=== PATIENT | male | born 1955 | race Caucasian/White ===

== ENCOUNTER 2016-12-22 17:27 | Inpatient (IN) ==
--- NOTE | 2016-12-22 18:16 | CT Report ---
CT head/brain wo con Indication: Hemiparesis, side not delineated. CT BRAIN WITHOUT CONTRAST DLP: 1073 mGy*cm. One or more of the following dose reduction techniques was used: Automated exposure control, adjustment of the mA and/or kV according the patient size, or use of iterative reconstruction techniques. Comparison: None. Date of admission: 12/22/2016. Technique: Axial noncontrast CT images of the brain were obtained. Findings: No acute hemorrhage, mass or mass effect. Generalized atrophy and patchy periventricular white matter hypodensity is present throughout both convexities. Cortical pedroza-white junction and structures of the basal ganglia are well-defined. No bone lesions are shown. Internal auditory canals are symmetric. Visualized sinuses and mastoid air cells are clear. Impression: No acute intracranial pathology. Generalized atrophy and changes consistent with microvascular disease. PROCEDURE INTERPRETED AT [facility] DEPARTMENT OF RADIOLOGY Final Report Signed by: Chriss Castro M.D.
--- NOTE | 2016-12-22 18:17 | XRay Report ---
XR chest 1V portable Indication: Cardiomegaly. Chest one view: No comparison. The heart is normal in size. Bilateral perihilar haziness is present with diffuse peribronchial thickening. No focal pneumonia. Right hemidiaphragm is slightly elevated. Impression: Mild airways disease. No cardiomegaly. PROCEDURE INTERPRETED AT [facility] DEPARTMENT OF RADIOLOGY Final Report Signed by: Chriss Castro M.D.
[2016-12-22 18:32] LABS: Hematocrit 49.5 VOL% (42.0-52.0); Hemoglobin 17.5 GM/DL (14.0-18.0); Lymphocytes % 25.1 % (21.2-54.2); Mean Corpuscular HGB Conc 35.4 GM/DL (32-36); Mean Corpuscular Hemoglobin 33 PG (27-34); Mean Corpuscular Volume 92.9 FL (87-102); Mean Platelet Volume 10.3 FL (9.6-12.0); Neutrophils % 60.7 % (38.7-73.9); Platelet Count 206 T/CUMM (130-400); Red Blood Count 5.33 MC/CUMM (3.8-5.5); Red Cell Distribution Width 12.9 % (9.3-17.3); White Blood Count 7.5 T/CUMM (4-12)
[2016-12-22 18:33] LABS: Basophils % 0.5 % (0.0-0.8); Eosinophils # 0.1 10*3/uL (0.0-0.87); Eosinophils % 0.8 % (0.00-10.9); Immature Granulocytes % 0.3 %; Immature Granulocytes Absolute 0.02 #; Lymphocytes # 1.9 10*3/uL (1.4-4.0); Monocytes % 12.6 % (1.7-12.7); Neutrophils # 4.6 10*3/uL (1.4-7.4)
[2016-12-22 18:48] LABS: INR 1.1; PT Patient Result 11.5 SECS; Partial Thromboplastin Time 28.5 SECS (0-40)
[2016-12-22 18:52] LABS: Alanine Aminotransferase 41 U/L (16-61); Albumin 3.8 G/DL (3.4-5.0); Alkaline Phosphatase 112 U/L (45-117); Aspartate Amino Transferase 37 U/L (0-37); Bilirubin,Total < 0.39 MG/DL (0.2-1.0); Blood Urea Nitrogen 11 MG/DL (7-18); Calcium 9.1 MG/DL (8.5-10.1); Glucose 180 MG/DL (74-106); Osmolality,Calculated 278.7 MOS/KG (273-304); Potassium 3.8 MMOL/L (3.5-5.1); Sodium 138 MMOL/L (136-145); Total Protein 7.7 G/DL (6.4-8.3)
[2016-12-22 19:18] LABS: Apearance,Urine CLEAR (Clear); Bilirubin,Urine Negative (Negative); Blood, Urine Negative (Negative); Glucose,Urine (UA) >=500 mg/dL (Negative); Ketones,Urine Negative (Negative); Mucus,Urine Occasional /LPF (Occasional); Nitrite,Urine Negative (Negative); Protein,Urine 100 MG/DL; Squamous Epithelial Cell,Urine Occasional /HPF (0-10); Urine Color Yellow (Yellow); Urine Urobilinogen < 2.0 EU/DL (0.2-1.0); WBC,Urine 1 /HPF (0-6)
--- NOTE | 2016-12-22 19:19 | Emergency Department Note ---
Eyad Garcia Brittany, am scribing for, and in the presence of, Venkat Frost MD 17:56. Santosh Garcia Doug C, MD, personally performed the services described in this documentation, ascribed by Macey Castano in my presence, and it is both accurate and complete 919 . Arrival - Arrival Chief Complaint: Neuro Stated Complaint: possible stroke ED Nursing Triage Note: Pt c/o unsteady gait/difficulty ambulating since midnight with a HANKINS/dizziness. Mode of Arrival: Wheelchair Limitations: No Limitations Source: Patient, Significant other, RN Notes Reviewed - History of Present Illness HPI Narrative: Patient is a 61-year-old white male presents emergency room complaining of difficulty walking. Patient states he awakened last night around midnight and states he could barely make it to the restroom due to unsteady gait. He felt like he was in motion and he felt like he was very much off balance. He denies any headaches does not have any hearing changes. He denied any lateralizing weakness or paresthesias associated with this. He denies nausea, vomiting or any febrile symptoms. He does have a history of tobacco abuse and smoked 1-2 packs a day for 40 years. He has not had any visual changes and he denies any difficulty with his speech. Onset (ago): hour(s) (onset 12AM) Consistency: constant Allergies/Adverse Reactions: Allergies Allergy/AdvReac Type Severity Reaction Status Date / Time No Known Allergies Allergy Verified 12/22/16 17:38 Home Medications: Home Medications Medication Instructions Recorded Confirmed Type No Known Home Medications [No 12/22/16 12/22/16 History Known Home Medications] Review of System - Review of System 12 point system: reviewed and no additional remarkable complaints except as stated - Review of System Constitutional: Absent: chills, fever Eyes: Absent: vision change Head/Ears/Nose/Throat: Absent: nasal drainage, sore throat Respiratory: Absent: respiratory distress Cardiovascular: Absent: chest pain Gastrointestinal: Absent: abdominal pain, nausea, vomiting, diarrhea, constipation Genitourinary male: Absent: urgency, dysuria, frequency Musculoskeletal: Absent: arm pain, back pain, leg pain, neck pain Skin: Absent: rash Neurological: Present: as per HPI, weakness, abnormal gait, vertigo. Absent: headache, numbness, paresthesias, confusion Psychiatric: Absent: anxiety, depression Hematological/Lymphatic: Absent: easy bleeding, easy bruising Medical,Surgical,& Family Hx - Medical History Cardio: History of: Hypertension Respiratory: History of: Respiratory Problems ("PAP") - Surgical History Additional Surgical History: Patient has had prior sinus surgery and lung biopsy. - Family History Family History: Reports;: Family Hypertension - Social History Smoking Status: Current every day smoker Exam Vital Signs: Vital Signs Temperature 99.1 F 12/22/16 17:45 Pulse Rate 85 12/22/16 17:45 Respiratory Rate 18 12/22/16 17:45 Blood Pressure 175/105 12/22/16 17:45 O2 Sat by Pulse Oximetry 96 12/22/16 17:35 - General General appearance: alert, in no apparent distress, other (smells of cigarettes) - Head Head exam: Present: atraumatic, normocephalic, normal inspection - Eye Eye exam: Present: normal appearance, PERRL, EOMI - ENT ENT exam: Present: normal exam, normal oropharynx, mucous membranes moist - Neck Neck exam: Present: normal inspection, full ROM, trachea midline - Chest Chest inspection: Present: normal inspection, symmetric chest wall rise - Respiratory Respiratory exam: Present: normal lung sounds bilaterally. Absent: rales, rhonchi, wheezes - Cardiovascular Cardiovascular exam: Present: regular rate, normal rhythm, normal heart sounds. Absent: murmur, rubs, gallop - Abdominal Exam Abdominal exam: Present: soft, normal bowel sounds. Absent: distention, tenderness - Extremities Exam Extremities exam: Present: normal inspection - Back Exam Back exam: Present: normal inspection - Neurological Exam Neurological exam: Present: alert, oriented X3, CN II-XII intact. Absent: normal gait (Patient was noted to have an ataxic gait.), motor sensory deficit - Psychiatric Psychiatric exam: Present: normal affect - Skin Skin exam: Present: warm, dry Course Course Narrative: Patient's clinical presentation, laboratory and radiographic findings were discussed with Dr. Asad Lo. He will see the patient emergency room and evaluate for admission. Results - Labs CBC & BMP: 12/22/16 18:22 12/22/16 18:22 Lab Results: I have reviewed the patients labs Labs: Laboratory Tests 12/22/16 18:22 WBC 7.5 RBC 5.33 Hgb 17.5 Hct 49.5 MCV 92.9 MCH 33 MCHC 35.4 RDW 12.9 Plt Count 206 MPV 10.3 Neut % (Auto) 60.7 Lymph % (Auto) 25.1 [place] % (Auto) 12.6 Eos % (Auto) 0.8 Baso % (Auto) 0.5 Neut # (Auto) 4.6 Lymph # (Auto) 1.9 [place] # (Auto) 1.0 H Eos # (Auto) 0.1 Baso # (Auto) 0.0 Immature Gran % 0.3 Nucleated RBC % 0.0 Immature Gran # 0.02 Nucleated RBCs # 0.00 Laboratory Tests 12/22/16 12/22/16 12/22/16 18:22 18:22 18:22 INR 1.1 PT Patient/Control Mix 11.5 Circ Anticoag PTT 28.5 Sodium 138 Potassium 3.8 Chloride 105 Carbon Dioxide 25 Anion Gap 11.8 BUN 11 Creatinine 1.00 GFR Calculation 97 BUN/Creatinine Ratio 11.00 Glucose 180 H Calculated Osmolality 278.7 Calcium 9.1 Total Bilirubin < 0.39 AST 37 ALT 41 Alkaline Phosphatase 112 Troponin I < 0.015 Total Protein 7.7 Albumin 3.8 Globulin 3.9 H Albumin/Globulin Ratio 0.9 L - Diagnostic Findings Procedure: Chest x-ray: report reviewed by me (Mild airways disease. No cardiomegaly.), CT: report reviewed by me (Head CT: No acute intracranial pathology. Generalized atrophy and changes consistent with microvascular disease.) Disposition Clinical Impression: Unsteady gait Case discussed with: patient, patient's family Disposition: Still a Patient Condition: Stable Time of Disposition: 19:19
[2016-12-22 19:27] LABS: Barbiturates Screen,Urine Negative (Negative); Benzodiazepines Screen,Urine Negative (Negative); Cannabinoid Screen,Urine Negative (Negative); Opiate Screen,Urine Negative (Negative); Phencyclidine Screen,Urine Negative (Negative)
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
[2016-12-22] MEDS ORDERED: MECLIZINE 12.5 MG TABLET PO PRN (22:47)
[2016-12-22] MEDS ORDERED: DEXTROSE 50% 25 GM/50 ML VIAL IV PRN (22:47)
[2016-12-22] MEDS ORDERED: LABETALOL 20 MG/4 ML SYRINGE IV PRN (22:47)
[2016-12-22] MEDS ORDERED: SODIUM CHLORIDE 0.9% 1,000 ML IV SCH (22:47)
[2016-12-22] MEDS ORDERED: GLUCAGON 1 MG VIAL IM PRN (22:47)
[2016-12-22 23:30] LABS: Risk Ratio 11.26; VLDL CHOLESTEROL 210.8 MG/DL
[2016-12-22] MEDS ORDERED: PNEUMOCOCCAL VACCINE (23 VALENT) 0.5 ML VIAL IM ONE (23:59)
[2016-12-23] MEDS: INSULIN LISPRO 100 UNIT/ML SUBCUT SCH ×5 (00:39→20:54)
[2016-12-23] MEDS: ASPIRIN EC 81 MG TABLET PO SCH (08:32)
--- NOTE | 2016-12-23 09:52 | EKG Report ---
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
--- NOTE | 2016-12-23 10:53 | Magnetic Resonance Report ---
MR head/brain wo con Indication: "Acute dizziness in smoker, rule out CVA" MRI BRAIN WITHOUT CONTRAST Technique: Multiplanar noncontrast MR images of the brain were obtained. Comparison: None. Findings: No restricted diffusion. No evidence of hemorrhage or old blood products on gradient echo. Mild generalized atrophy noted diffusely. Virtually no abnormal T2 or FLAIR hyperintensities are seen within the deep white matter. There are some minimally dilated perivascular spaces in the basal ganglia. No encephalomalacia. No mass or mass effect. Orbits are symmetric. Internal auditory canals are symmetric. Visualized sinuses are clear. Impression: No acute intracranial pathology. Mild generalized atrophy. PROCEDURE INTERPRETED AT [facility] DEPARTMENT OF RADIOLOGY Final Report Signed by: Chriss Castro M.D.
--- NOTE | 2016-12-23 16:29 | Hospitalist Progress Note ---
Assessment and Plan - Time spent with patient Time spent with patient: Greater than 30 minutes (1) Unsteady gait Status: Acute Assessment and plan: MRI of the brain is negative. Will order echo and carotid ultrasound. We will consult neurology. Current Visit: Yes (2) Diabetes mellitus Status: Acute Assessment and plan: We will put the patient on a diabetic diet. Current Visit: Yes (3) Hypertension Status: Acute Assessment and plan: Start as needed hydralazine. Current Visit: Yes (4) Pulmonary alveolar proteinosis Status: Chronic Current Visit: Yes (5) Hypertriglyceridemia Status: Acute Assessment and plan: We will add TriCor. Current Visit: Yes (6) Hypercholesteremia Status: Acute Assessment and plan: We will add Lipitor. Current Visit: Yes (7) Tobacco abuse disorder Status: Acute Assessment and plan: Counseled on tobacco cessation. Current Visit: Yes Hospitalist: Subjective Interval history: No complaints overnight events. Exam - Constitutional Vitals: Period Temp Pulse Resp BP Sys/Arteaga Pulse Ox Last 24 Hr 96.4 F-99.1 F 61-88 16-20 152-189/96-116 95-99 General appearance: no acute distress - Head Head exam: Present: normocephalic, atraumatic - Eye Eye exam: Present: EOMI Pupils: Present: BANDAR - ENT ENT exam: Present: normal exam - Neck Neck exam: Present: normal inspection - Respiratory Respiratory exam: Present: clear to auscultation bilaterally. Absent: rhonchi, wheezes - Cardiovascular Cardiovascular exam: Present: regular rate and rhythm. Absent: gallop, rubs, systolic murmur - GI/Abdominal GI/Abdominal exam: Present: normal bowel sounds, soft. Absent: distended, firm , guarding, tenderness, rebound - Extremities Exam Extremities exam: Present: normal inspection. Absent: calf tenderness, edema Results - Labs CBC & BMP: 12/22/16 18:22 12/22/16 18:22 Lab Results: I have reviewed the past 24 hour labs Quality Measures - VTE Contraindication to Pharmacological VTE Prophylaxis: High Risk of Bleeding - Stroke Onset of Symptoms Date: 12/22/16 Onset of Symptoms Time: 00:00
[2016-12-23] MEDS: hydrALAZINE 20 MG/1 ML VIAL IV PRN (17:32)
--- NOTE | 2016-12-23 19:26 | Ultrasound Report ---
US carotid duplex BI Indication: Dizziness. CAROTID ULTRASOUND Comparison: None. Findings: Grayscale, color Doppler and pulsed Doppler interrogation of the carotid and vertebral arteries performed. Severity of stenosis based on flow velocity measurements using NASCET criteria. Distal right ICA diameter: 5.5 mm Distal left ICA diameter: 5.2 mm Peak systolic flow velocities in centimeters per second are as follows: Right: CCA: 86 cm/s Proximal ICA: 63 Distal ICA: 62 ICA/CCA ratio: 0.7 Left: CCA: 91 cm/s Proximal ICA: 70 Distal ICA: 75 ICA/CCA ratio: 0.8 External carotid arteries: Both are patent with antegrade flow. Vertebral arteries: Both are patent with antegrade flow. Grayscale and color Doppler images: Densely calcified plaque deposition shown bilaterally, but subjectively does not appear significant in size. Normal color Doppler flow present. Pulse Doppler waveform interrogation: No significant spectral broadening. Impression: No hemodynamically significant stenosis of either ICA origin. PROCEDURE INTERPRETED AT [facility] DEPARTMENT OF RADIOLOGY Final Report Signed by: Chriss Castro M.D.
[2016-12-23] MEDS: ATORVASTATIN 80 MG TABLET PO SCH (20:54)
[2016-12-24] MEDS: hydrALAZINE 20 MG/1 ML VIAL IV PRN ×2 (00:16→08:27)
[2016-12-24 04:48] LABS: Basophils % 0.6 % (0.0-0.8); Eosinophils # 0.1 10*3/uL (0.0-0.87); Eosinophils % 0.9 % (0.00-10.9); Hematocrit 49.1 VOL% (42.0-52.0); Hemoglobin 16.9 GM/DL (14.0-18.0); Immature Granulocytes % 0.3 %; Immature Granulocytes Absolute 0.02 #; Lymphocytes # 2.3 10*3/uL (1.4-4.0); Mean Corpuscular HGB Conc 34.4 GM/DL (32-36); Mean Corpuscular Hemoglobin 33 PG (27-34); Mean Corpuscular Volume 94.6 FL (87-102); Mean Platelet Volume 10.7 FL (9.6-12.0); Monocytes # 0.8 10*3/uL (0.11-0.8); Monocytes % 12.3 % (1.7-12.7); Neutrophils # 3.5 10*3/uL (1.4-7.4); Neutrophils % 51.9 % (38.7-73.9); Platelet Count 176 T/CUMM (130-400); Red Blood Count 5.19 MC/CUMM (3.8-5.5); Red Cell Distribution Width 12.7 % (9.3-17.3); White Blood Count 6.7 T/CUMM (4-12)
[2016-12-24 05:12] LABS: Calcium 8.8 MG/DL (8.5-10.1); Osmolality,Calculated 273.7 MOS/KG (273-304); Potassium 3.6 MMOL/L (3.5-5.1)
[2016-12-24] MEDS: INSULIN LISPRO 100 UNIT/ML SUBCUT SCH ×4 (08:01→21:14)
[2016-12-24] MEDS: FENOFIBRATE 145 MG TABLET PO SCH (08:26)
[2016-12-24] MEDS: ASPIRIN EC 81 MG TABLET PO SCH (08:26)
--- NOTE | 2016-12-24 09:11 | Neurology Consult Note ---
History of Present Illness History of present illness: Mr. Casey is a 61 year old right-handed white gentleman with past medical history of pulmonary alveolar proteinosis, smoking presented with a chief complaint of balance difficulty and unable to walk. It started all of a sudden on Saturday evening. Exacerbated by standing and walking. Relieved by resting in bed. Patient reported that he was fine up until Saturday evening and all of a sudden he developed this balance difficulty. He reported that he is leading towards the right somewhat. He denies dizziness, vertigo, room is spinning, speech difficulties, swallowing difficulties, tingling and numbness or weakness anywhere else. MRI of the brain is unremarkable for any acute or chronic pathology. Carotid ultrasound is unremarkable. Lipid panel is negative. Home Medications Medication Instructions Recorded Confirmed Type No Known Home Medications [No 12/22/16 12/22/16 History Known Home Medications] Allergies Allergy/AdvReac Type Severity Reaction Status Date / Time No Known Allergies Allergy Verified 12/22/16 17:38 12 point system: reviewed and no additional remarkable complaints except as stated Medical,Surgical,& Family Hx - Medical History Cardio: History of: Hypertension Neurology: No history of: Cerebral Hemorrhage, Cerebrovascular Accident, Neurological Problems Respiratory: History of: Respiratory Problems ("PAP") - Surgical History Neurologic Surgeries: Patient denies: Cerebral Hemorrhage - Family History Family History: Reports;: Family Hypertension - Social History Smoking Status: Current every day smoker Frequency of Alcohol Use: Occasionally Type of Drug Use: None Exam - Constitutional Vitals: Period Temp Pulse Resp BP Sys/Arteaga Pulse Ox Last 24 Hr 97.9 F-98.8 F 80-91 18-20 152-193/92-115 94-99 Exam: GENERAL: Patient is in no acute distress. NECK: Neck is supple. There is no JVD. No carotid bruits present. No thyroid masses. CVS: First and second heart sounds are normal. There is no S3 present. Regular rate and rhythm. RESPIRATORY: Lungs are clear to auscultation without any rales or rhonchi. ABDOMEN: Soft and non-tender. Bowel sounds are present. There is no hepatosplenomegaly. EXT: There is no palpable edema. Peripheral pulses are present. Skin: No rashes Central Nervous system: General: Alert, awake and Oriented x 3 Speech: Fluent Comprehension: Intact and normal Facial expressions: Normal Cranial Nerves: CN1/Olfactory: Normal CN II/ Optic: Normal, Visual Reyez unreliable CN III, and : BANDAR & EOMI CN V: Normal & intact CN VII: face is symmetric CNVIII: Normal CN XI/X/XI/XII: Intact and Normal Motor: Bulk and Tone is normal. Strength in the right 5/5 Strength in the left 5/5 Sensory: Grossly intact for all the modalities of PP, LT and temp sense Reflexes: 1+ and symmetrical Cerebellar function: Normal finger to nose and heel to marina testing. Toes: Equivocal Gait: Ataxic gait however was able to balance himself with some distraction. Results - Labs CBC & BMP: 12/24/16 04:10 12/24/16 04:10 Assessment and Plan (1) Unsteady gait Status: Acute Assessment and plan: The etiology of balance difficulty and unsteady gait is not clear. No evidence of stroke, TIAs, epilepsy, seizure or any primary ANALYTICAL STRATEGIST disorder seen. Upon destruction patient was unable to balance clearly and walk. I certainly cannot rule out the possibility of functional element. Recommend aspirin a day. Recommend PT and OT Recommend watchful observation for now Thank you for the count Current Visit: Yes
[2016-12-24] MEDS: amLODIPine 10 MG TABLET PO SCH (13:53)
--- NOTE | 2016-12-24 15:37 | ECHO Report ---
Aman Casey Exam Date: 12/24/2016 09:03 Referring Physician: Technologist: Radhika Martinez RDCS Age: 61 Ht (in): 70 Wt (lb): 189 Gender: M Exam Location: [facility] ([facility]) Echo Indications: Unsteadiness on feet, Unspecified abnormalities of gait and mobility, Essential (primary) hypertension, Nicotine dependence, cigarettes, uncomplicated, Diabetes BP: 158 / 92 HR: 97 Rhythm: Sinus Technical Quality: IMPRESSIONS Left ventricular ejection fraction is estimated at 65%. Grade I/IV diastolic dysfunction (abnormal relaxation filling pattern), normal to mildly elevated filling pressures. The right ventricle is normal in size and function. The right atrium is normal in size. The left atrium is normal in size. Morphologically normal mitral valve. No mitral valve regurgitation. Aortic valve sclerosis. No aortic valve regurgitation. Mild tricuspid valve regurgitation. GII30-14 mmHg. No pulmonary valve regurgitation. Normal pericardium without effusion. Normal ascending aorta dimension. MEASUREMENTS (Male / Female) Normal Values 2D ECHO LV Diastolic Diameter PLAX 4.2 cm 4.2 - 5.9 / 3.9 - 5.3 cm LV Systolic Diameter PLAX 2.1 cm LV Fractional Shortening PLAX 49.8 % IVS Diastolic Thickness 1.0 cm 0.6 - 1.0 / 0.6 - 0.9 cm LVPW Diastolic Thickness 1.0 cm 0.6 - 1.0 / 0.6 - 0.9 cm RV Internal Dim ED PLAX 2.9 cm Aortic Root Diameter 3.4 cm LA Systolic Diameter LX 3.4 cm 3.0 - 4.0 / 2.7 - 3.8 cm DOPPLER TR Peak Velocity 255.0 cm/s TR Peak Gradient 26.0 mmHg FINDINGS Left Ventricle Normal left ventricular cavity size. Normal left ventricular wall thickness. Left ventricular ejection fraction is estimated at 65%. Grade I/IV diastolic dysfunction (abnormal relaxation filling pattern), normal to mildly elevated filling pressures. Right Ventricle The right ventricle is normal in size and function. Right Atrium The right atrium is normal in size. Left Atrium The left atrium is normal in size. Mitral Valve Morphologically normal mitral valve. No mitral valve regurgitation. Aortic Valve Aortic valve sclerosis. No aortic valve regurgitation. Tricuspid Valve Morphologically normal tricuspid valve. Mild tricuspid valve regurgitation. AKN99-91 mmHg. Pulmonic Valve Pulmonic valve not well visualized. . No pulmonary valve regurgitation. Pericardium Normal pericardium without effusion. Aorta Normal ascending aorta dimension. Modesto Moreno (Electronically Signed) Final Date: 24 December 2016 15:36
--- NOTE | 2016-12-24 16:04 | Hospitalist Progress Note ---
Assessment and Plan - Time spent with patient Time spent with patient: Greater than 30 minutes (1) Unsteady gait Status: Acute Assessment and plan: MRI of the brain is negative. Appreciate Neurologys assistance. Current Visit: Yes (2) Diabetes mellitus Status: Acute Assessment and plan: We will put the patient on a diabetic diet. Current Visit: Yes (3) Hypertension Status: Acute Assessment and plan: Start as needed hydralazine. Current Visit: Yes (4) Pulmonary alveolar proteinosis Status: Chronic Current Visit: Yes (5) Hypertriglyceridemia Status: Acute Assessment and plan: We will add TriCor. Current Visit: Yes (6) Hypercholesteremia Status: Acute Assessment and plan: We will add Lipitor. Current Visit: Yes (7) Tobacco abuse disorder Status: Acute Assessment and plan: Counseled on tobacco cessation. Current Visit: Yes Hospitalist: Subjective Interval history: No complaints, no overnight events. Exam - Constitutional General appearance: no acute distress - Head Head exam: Present: normocephalic, atraumatic - Eye Eye exam: Present: EOMI Pupils: Present: BANDAR - ENT ENT exam: Present: normal exam - Neck Neck exam: Present: normal inspection - Respiratory Respiratory exam: Present: clear to auscultation bilaterally. Absent: rhonchi, wheezes - Cardiovascular Cardiovascular exam: Present: regular rate and rhythm. Absent: gallop, rubs, systolic murmur - GI/Abdominal GI/Abdominal exam: Present: normal bowel sounds, soft. Absent: distended, firm , guarding, tenderness, rebound - Extremities Exam Extremities exam: Present: normal inspection. Absent: calf tenderness, edema Results - Labs CBC & BMP: 12/24/16 04:10 12/24/16 04:10 Lab Results: I have reviewed the past 24 hour labs Quality Measures - VTE Contraindication to Pharmacological VTE Prophylaxis: High Risk of Bleeding - Stroke Onset of Symptoms Date: 12/22/16 Onset of Symptoms Time: 00:00
[2016-12-24] MEDS: ATORVASTATIN 80 MG TABLET PO SCH (21:13)
[2016-12-25 04:47] LABS: Basophils % 0.5 % (0.0-0.8); Eosinophils # 0.1 10*3/uL (0.0-0.87); Eosinophils % 0.9 % (0.00-10.9); Hematocrit 51.6 VOL% (42.0-52.0); Hemoglobin 17.5 GM/DL (14.0-18.0); Immature Granulocytes % 0.5 %; Immature Granulocytes Absolute 0.03 #; Lymphocytes % 30.8 % (21.2-54.2); Mean Corpuscular HGB Conc 33.9 GM/DL (32-36); Mean Corpuscular Hemoglobin 33 PG (27-34); Mean Corpuscular Volume 95.9 FL (87-102); Mean Platelet Volume 10.5 FL (9.6-12.0); Monocytes # 0.7 10*3/uL (0.11-0.8); Monocytes % 10.8 % (1.7-12.7); Neutrophils # 3.7 10*3/uL (1.4-7.4); Neutrophils % 56.5 % (38.7-73.9); Platelet Count 197 T/CUMM (130-400); Red Blood Count 5.38 MC/CUMM (3.8-5.5); Red Cell Distribution Width 12.9 % (9.3-17.3); White Blood Count 6.6 T/CUMM (4-12)
[2016-12-25 05:16] LABS: Calcium 9.4 MG/DL (8.5-10.1); Osmolality,Calculated 278.4 MOS/KG (273-304); Potassium 4.3 MMOL/L (3.5-5.1)
[2016-12-25] MEDS: FENOFIBRATE 145 MG TABLET PO SCH (08:42)
[2016-12-25] MEDS: amLODIPine 10 MG TABLET PO SCH (08:42)
[2016-12-25] MEDS: ASPIRIN EC 81 MG TABLET PO SCH (08:43)
[2016-12-25] MEDS: INSULIN LISPRO 100 UNIT/ML SUBCUT SCH ×4 (09:05→20:54)
[2016-12-25] MEDS ORDERED: ACETAMINOPHEN 325 MG TABLET PO PRN (10:04)
[2016-12-25] MEDS: LISINOPRIL 20 MG TABLET PO SCH (10:31)
--- NOTE | 2016-12-25 15:00 | Neurology Progress Note ---
Neurology - PN : Subjective Interval history: Mr. Casey seems to be doing a little better. However subjectively he states that he is about the same. MRI of the brain failed to reveal any acute pathology. Exam (Progress Note) - Constitutional Vitals: Period Temp Pulse Resp BP Sys/Arteaga Pulse Ox Last 24 Hr 96.8 F-98.5 F 74-89 16-20 148-186/90-112 95-97 Exam: GENERAL: Patient is in no acute distress. NECK: Neck is supple. There is no JVD. No carotid bruits present. No thyroid masses. CVS: First and second heart sounds are normal. There is no S3 present. Regular rate and rhythm. RESPIRATORY: Lungs are clear to auscultation without any rales or rhonchi. ABDOMEN: Soft and non-tender. Bowel sounds are present. There is no hepatosplenomegaly. EXT: There is no palpable edema. Peripheral pulses are present. Skin: No rashes Central Nervous system: General: Alert, awake and Oriented x 3 Speech: Fluent Comprehension: Intact and normal Facial expressions: Normal Cranial Nerves: CN1/Olfactory: Normal CN II/ Optic: Normal, Visual Reyez unreliable CN III, and : BANDAR & EOMI CN V: Normal & intact CN VII: face is symmetric CNVIII: Normal CN XI/X/XI/XII: Intact and Normal Motor: Bulk and Tone is normal. Strength in the right 5/5 Strength in the left 5/5 Sensory: Grossly intact for all the modalities of PP, LT and temp sense Reflexes: 1+ and symmetrical Cerebellar function: Normal finger to nose and heel to marina testing. Toes: Equivocal Gait: Ataxic gait however was able to balance himself with some distraction. Results - Labs CBC & BMP: 12/25/16 04:05 12/25/16 04:05 Assessment and Plan (1) Unsteady gait Status: Acute Assessment and plan: Continue aspirin a day. Recommend outpatient PT and OT No further recommendations/intervention from neuro standpoint Sign off please call. Current Visit: Yes Quality Measures - VTE Contraindication to Pharmacological VTE Prophylaxis: High Risk of Bleeding - Stroke Onset of Symptoms Date: 12/22/16 Onset of Symptoms Time: 00:00
--- NOTE | 2016-12-25 16:32 | Hospitalist Progress Note ---
Assessment and Plan - Time spent with patient Time spent with patient: Greater than 30 minutes (1) Unsteady gait Status: Acute Assessment and plan: MRI of the brain is negative. Appreciate Neurologys assistance. Current Visit: Yes (2) Diabetes mellitus Status: Acute Assessment and plan: We will put the patient on a diabetic diet. Current Visit: Yes (3) Hypertension Status: Acute Assessment and plan: Start as needed hydralazine. Current Visit: Yes (4) Pulmonary alveolar proteinosis Status: Chronic Current Visit: Yes (5) Hypertriglyceridemia Status: Acute Assessment and plan: We will add TriCor. Current Visit: Yes (6) Hypercholesteremia Status: Acute Assessment and plan: We will add Lipitor. Current Visit: Yes (7) Tobacco abuse disorder Status: Acute Assessment and plan: Counseled on tobacco cessation. Current Visit: Yes Hospitalist: Subjective Interval history: No complaints overnight events. Exam - Constitutional Vitals: Period Temp Pulse Resp BP Sys/Arteaga Pulse Ox Last 24 Hr 96.8 F-98.5 F 74-89 16-20 140-165/90-103 94-96 General appearance: no acute distress - Head Head exam: Present: normocephalic, atraumatic - Eye Eye exam: Present: EOMI Pupils: Present: BANDAR - ENT ENT exam: Present: normal exam - Neck Neck exam: Present: normal inspection - Respiratory Respiratory exam: Present: clear to auscultation bilaterally. Absent: rhonchi, wheezes - Cardiovascular Cardiovascular exam: Present: regular rate and rhythm. Absent: gallop, rubs, systolic murmur - GI/Abdominal GI/Abdominal exam: Present: normal bowel sounds, soft. Absent: distended, firm , guarding, tenderness, rebound - Extremities Exam Extremities exam: Present: normal inspection. Absent: calf tenderness, edema Results - Labs CBC & BMP: 12/25/16 04:05 12/25/16 04:05 Lab Results: I have reviewed the past 24 hour labs Quality Measures - VTE Contraindication to Pharmacological VTE Prophylaxis: High Risk of Bleeding - Stroke Onset of Symptoms Date: 12/22/16 Onset of Symptoms Time: 00:00
[2016-12-25] MEDS: ATORVASTATIN 80 MG TABLET PO SCH (20:53)
[2016-12-26] MEDS: INSULIN LISPRO 100 UNIT/ML SUBCUT SCH ×2 (08:33→11:20)
[2016-12-26] MEDS: ASPIRIN EC 81 MG TABLET PO SCH (08:45)
[2016-12-26] MEDS: amLODIPine 10 MG TABLET PO SCH (08:45)
[2016-12-26] MEDS: LISINOPRIL 20 MG TABLET PO SCH (08:45)
[2016-12-26] MEDS: FENOFIBRATE 145 MG TABLET PO SCH (08:45)
[2016-12-26 11:10] VITALS: BP 127/83
--- NOTE | 2016-12-26 14:29 | Discharge Summary ---
Hospital Course - Hospital Course Hospital Course: Mr. Casey was admitted for evaluation of ataxia. He had a MRI of his brain performed that was unremarkable. Echocardiogram revealed grade 1 out of 4 diastolic dysfunction with normal systolic function. Carotid Dopplers are negative. Patient was seen by neurology who recommended initiating an aspirin. He was noted to have elevated triglycerides, LDL and a hemoglobin A1c of 6.5. This indicates the patient has diabetes. I instructed the patient on proper diet initiated a statin and a fenofibrate. Patient was also noted to be hypotensive and antihypertensives were initiated. He will continue this regimen at home. He will also follow-up with outpatient PT. - Time spent with patient Time with patient DS: Greater than 30 minutes Diagnosis - Discharge Diagnosis (1) Unsteady gait Status: Acute (2) Diabetes mellitus Status: Acute (3) Hypertension Status: Acute (4) Pulmonary alveolar proteinosis Status: Chronic (5) Hypertriglyceridemia Status: Acute (6) Hypercholesteremia Status: Acute (7) Tobacco abuse disorder Status: Acute Discharge Plan - Discharge Data Disposition: Disch To Home/Self Care Condition at Discharge: Stable Discharge Diet: diabetic diet, heart healthy, high fiber diet, low fat, low cholesterol Activity: resume usual activities as tolerated - Discharge Medications New Aspirin EC Tab 81 mg PO DAILY #30 tablet Atorvastatin [Lipitor] 80 mg PO BEDTIME #30 tablet Fenofibrate [Tricor] 145 mg PO DAILY #30 tablet Lisinopril [Prinivil] 20 mg PO DAILY #30 tablet amLODIPine [Norvasc] 10 mg PO DAILY #30 tablet - Follow Up or Referral - Forms/Instructions Instructions: Pneumococcal Polysaccharide Vaccine (DC), Chronic Hypertension ( DC), Weakness (GEN), Fall Prevention (DC) Exam - Constitutional Vitals: Period Temp Pulse Resp BP Sys/Arteaga Pulse Ox Last 24 Hr 96.2 F-98.4 F 69-83 16-20 127-143/83-99 94-96 General appearance: normal weight, no acute distress - Head Head exam: Present: normal inspection, normocephalic, atraumatic - Eye Eye exam: Present: EOMI Pupils: Present: BANDAR - ENT ENT exam: Present: normal exam - Neck Neck exam: Present: normal inspection - Respiratory Respiratory exam: Present: clear to auscultation bilaterally - Cardiovascular Cardiovascular exam: Present: regular rate and rhythm - GI/Abdominal GI/Abdominal exam: Present: normal bowel sounds - Extremities Exam Extremities exam: Present: normal inspection Discharge Results Labs on day of discharge: Labs from last 24 hours 12/26/16 12/26/16 12/25/16 10:40 08:25 19:29 POC Glucose 138 H 101 150 H 12/25/16 15:16 POC Glucose 143 H DS: Provider Date of admission: 12/24/16 14:26 Primary care physician: . No PCP Attending physician on admission: Valerie Marquez MD Consults: 12/26/16 14:11 Consult to Outpatient Therapy [CONS] Routine Reason for Outpatient Therapy: Physical Therapy 12/26/16 14:12 Consult to Outpatient Therapy [CONS] Routine Reason for Outpatient Therapy: Occupational Therapy Discharging clinician: Valerie Marquez MD Expected date of discharge: 12/26/16
== END 2016-12-26 15:08 | disposition home or self-care (01) | DRG 92 ==
LOC: N.ED 17:27 → N.EDINP 17:27 → N.TELEN 20:14
PROVIDERS: ADMIT Internal Medicine; ATTEND Internal Medicine